=== PATIENT | female | born 1995 | race Caucasian/White ===

== ENCOUNTER 2017-04-22 10:59 | Emergency (ER) | payer OTHER ==
[2017-04-22] MEDS ORDERED: METOPROLOL SUCC50 M2 PO (11:05)
[2017-04-22 12:12] LABS: BASO % 0.4 % (0.0-1.0); EOS # 0.1 10*3/uL (0.0-0.4); EOS % 1.1 % (1.0-4.0); HEMATOCRIT 39.9 % (37.0-47.0); HEMOGLOBIN 13.4 g/dl (12.0-16.0); LYMPH # 2.9 10*3/uL (1.3-4.4); LYMPH % 30.4 % (27.0-41.0); MEAN CELL VOLUME 89.7 fl (81.0-99.0); MEAN CORPUSCULAR HGB 30.1 pg (27.0-31.0); MEAN CORPUSCULAR HGB CONC 33.6 g/dl (33.0-37.0); MEAN PLATELET VOLUME 11.3 fl (9.6-12.3); MONO # 0.5 10*3/uL (0.1-1.0); MONO % 5.5 % (3.0-9.0); NEUT # 5.9 10*3/uL (2.3-7.9); NEUT % 62.2 % (47.0-73.0); PLATELET COUNT AUTOMATED 191 10*3/uL (130-400); RED BLOOD COUNT 4.45 10*6/uL (4.10-5.10); RED CELL DISTRI WIDTH 12.4 % (0-14.5); WHITE BLOOD COUNT 9.4 10*3/uL (4.8-10.8)
[2017-04-22 12:29] LABS: ALBUMIN 3.8 gm/dl (3.1-4.5); ALKALINE PHOSPHATASE 140 U/L (45-117); BUN 12 mg/dl (7-24); CHLORIDE 105 mmol/L (98-107); CREATININE 0.65 mg/dL (0.55-1.02); POTASSIUM 3.6 mmol/L (3.5-5.1); SGOT/AST 18 IU/L (3-35); SGPT/ALT 24 U/L (12-78); SODIUM 139 mmol/L (136-145); TOTAL PROTEIN 7.9 gm/dL (6.4-8.2)
[2017-04-22 12:37] LABS: BETA-HCG, QUANT < 1.0 mIU/mL (1-3); TROPONIN I < 0.015 ng/ml (<0.045)
== END 2017-04-22 16:02 | disposition home or self-care (01) ==
LOC: ED 10:59
PROVIDERS: Emergency Medicine
DX: K62.5 Hemorrhage of anus and rectum (principal); R42 Dizziness and giddiness; R51 Headache; R06.02 Shortness of breath; R55 Syncope and collapse; R10.84 Generalized abdominal pain

== ENCOUNTER → 2019-08-13 | Outpatient (CLI) | payer BC ==
[~2019-08-13] MED LIST: METOPROLOL SUCC50 M2 PO
[2019-08-13 09:25] LABS: HEMATOCRIT 38.3 % (37.0-47.0); HEMOGLOBIN 12.1 g/dl (12.0-16.0); MEAN CELL VOLUME 92.5 fl (81.0-99.0); MEAN CORPUSCULAR HGB 29.2 pg (27.0-31.0); MEAN CORPUSCULAR HGB CONC 31.6 g/dl (33.0-37.0); MEAN PLATELET VOLUME 11.5 fl (9.6-12.3); RED BLOOD COUNT 4.14 10*6/uL (4.10-5.10); RED CELL DISTRI WIDTH 12.3 % (0-14.5); WHITE BLOOD COUNT 6.7 10*3/uL (4.8-10.8)
[2019-08-13 09:52] LABS: ALBUMIN 4.1 gm/dl (3.1-4.5); ALKALINE PHOSPHATASE 149 U/L (45-117); BUN 20 mg/dl (7-24); CHLORIDE 108 mmol/L (98-107); CREATININE 0.69 mg/dL (0.55-1.02); POTASSIUM 4.1 mmol/L (3.5-5.1); SGOT/AST 11 IU/L (3-35); SGPT/ALT 23 U/L (12-78); SODIUM 139 mmol/L (136-145); TOTAL PROTEIN 7.6 gm/dL (6.4-8.2)
== END | disposition home or self-care (01) ==
LOC: LAB 08:44
PROVIDERS: Family Medicine
DX: R06.02 Shortness of breath (principal); J94.2 Hemothorax; R53.83 Other fatigue

== ENCOUNTER 2021-02-02 02:00 | Emergency (ER) | payer BC ==
[~2021-02-02] VITALS: Ht 170.1 cm; Wt 107.5 kg
[2021-02-02] MEDS ORDERED: ORPHENADRINE E100 MG PO (05:57)
[2021-02-02] MEDS ORDERED: MEDROL DOSEPAK4 MG PO (05:57)
== END 2021-02-02 06:20 | disposition home or self-care (01) ==
LOC: ED 02:00
DX: S16.1XXA Strain of muscle, fascia and tendon at neck level, initial encounter (principal); M54.12 Radiculopathy, cervical region; Z79.899 Other long term (current) drug therapy; X50.9XXA Other and unspecified overexertion or strenuous movements or postures, initial encounter; Y93.89 Activity, other specified; Y92.89 Other specified places as the place of occurrence of the external cause; Y99.8 Other external cause status

== ENCOUNTER → 2022-02-02 | Outpatient (CLI) | payer BC ==
[~2022-02-02] MED LIST changes: +MEDROL DOSEPAK4 MG PO; +ORPHENADRINE E100 MG PO
[2022-02-02 08:10] LABS: HEMATOCRIT 42.1 % (37.0-47.0); MEAN CELL VOLUME 89.4 fl (81.0-99.0); MEAN CORPUSCULAR HGB 29.9 pg (27.0-31.0); MEAN CORPUSCULAR HGB CONC 33.5 g/dl (33.0-37.0); MEAN PLATELET VOLUME 11.6 fl (9.6-12.3); RED BLOOD COUNT 4.71 10*6/uL (4.10-5.10)
[2022-02-02 08:36] LABS: ALKALINE PHOSPHATASE 122 U/L (45-117); BUN 19 mg/dl (7-24); CHLORIDE 107 mmol/L (98-107); CHOLESTEROL 150 mg/dL (<200); CREATININE 0.71 mg/dL (0.55-1.02); POTASSIUM 4.2 mmol/L (3.5-5.1); SGOT/AST 14 IU/L (3-35); SGPT/ALT 24 U/L (12-78); SODIUM 137 mmol/L (136-145); TOTAL PROTEIN 7.6 gm/dL (6.4-8.2); TRIGLYCERIDES 100 mg/dl (<150)
[2022-02-02 08:37] LABS: LDL CHOLESTEROL 89 mg/dL (9-159)
[2022-02-02 08:42] LABS: VITAMIN D, 25-HYDROXY 41.4 ng/mL (30-100)
[2022-02-06 00:06] LABS: TESTOSTERONE FREE, (DIRECT) 4.9 pg/mL (0.0-4.2)
[2022-02-06 15:06] LABS: CORN, IGE <0.10 kU/L (Class 0); MILK (COW), IGE <0.10 kU/L (Class 0); PEANUT, IGE <0.10 kU/L (Class 0); SOYBEAN, IGE <0.10 kU/L (Class 0); WHEAT, IGE <0.10 kU/L (Class 0)
[2022-02-07 08:07] LABS: ALTERNARIA ALTERNATA, IGE <0.10 kU/L (Class 0); AMERICAN ELM, IGE <0.10 kU/L (Class 0); ASPERGILLUS FUMIGATU, IGE <0.10 kU/L (Class 0); BERMUDA GRASS, IGE <0.10 kU/L (Class 0); BIRCH, COMMON SILVER IGE <0.10 kU/L (Class 0); CLADOSPORIUM HERBARU, IGE <0.10 kU/L (Class 0); D FARINAE MITE <0.10 kU/L (Class 0); D PTERONYSSINUS 0.13 kU/L (Class 0/I); DOG DANDER, IGE <0.10 kU/L (Class 0); MAPLE LEAF SYCAMORE, IGE <0.10 kU/L (Class 0); MAPLE/BOX ELDER, IGE <0.10 kU/L (Class 0); MOUSE URINE IGE <0.10 kU/L (Class 0); PENICILLIUM CHRYSOGENUM, IGE <0.10 kU/L (Class 0); ROUGH PIGWEED, IGE <0.10 kU/L (Class 0); SHEEP SORREL (DOCK), IGE <0.10 kU/L (Class 0); SHORT RAGWEED, IGE <0.10 kU/L (Class 0); TIMOTHY, IGE <0.10 kU/L (Class 0); WALNUT TREE, IGE <0.10 kU/L (Class 0); WHITE ASH, IGE <0.10 kU/L (Class 0); WHITE MULBERRY, IGE <0.10 kU/L (Class 0); WHITE OAK, IGE <0.10 kU/L (Class 0)
== END | disposition home or self-care (01) ==
LOC: LAB 07:40
PROVIDERS: ATTEND Family Medicine
DX: T78.1XXA Other adverse food reactions, not elsewhere classified, initial encounter (principal); T78.49XA Other allergy, initial encounter; E66.9 Obesity, unspecified; Z00.00 Encounter for general adult medical examination without abnormal findings; E74.9 Disorder of carbohydrate metabolism, unspecified; X58.XXXA Exposure to other specified factors, initial encounter

== ENCOUNTER 2022-12-20 07:20 | Emergency (ER) | payer BC ==
[~2022-12-20] VITALS: Ht 170.1 cm; Wt 104.3 kg
[2022-12-20 08:18] LABS: BASO % 0.3 % (0.0-1.0); EOS % 0.2 % (1.0-4.0); HEMATOCRIT 40.1 % (37.0-47.0); LYMPH # 1.6 10*3/uL (1.3-4.4); MEAN CELL VOLUME 88.5 fl (81.0-99.0); MEAN CORPUSCULAR HGB 30.2 pg (27.0-31.0); MEAN CORPUSCULAR HGB CONC 34.2 g/dl (33.0-37.0); MEAN PLATELET VOLUME 11.6 fl (9.6-12.3); MONO # 0.7 10*3/uL (0.1-1.0); MONO % 6.1 % (3.0-9.0); NEUT # 9.6 10*3/uL (2.3-7.9); NEUT % 79.8 % (47.0-73.0); PLATELET COUNT AUTOMATED 216 10*3/uL (130-400); RED BLOOD COUNT 4.53 10*6/uL (4.10-5.10); RED CELL DISTRI WIDTH 12.5 % (0-14.5)
[2022-12-20 08:59] LABS: ALKALINE PHOSPHATASE 105 U/L (46-116); BETA-HCG, QUANT < 3.0 mIU/mL (3-10); BUN 14 mg/dl (9-23); CHLORIDE 104 mmol/L (98-107); LIPASE 29 U/L (12-53); POTASSIUM 4.1 mmol/L (3.4-5.1); SGPT/ALT 17 U/L (10-49); TOTAL PROTEIN 7.3 gm/dL (6.0-8.0)
[2022-12-20 09:27] LABS: BILIRUBIN Negative (Negative); BLOOD Negative (Negative); CLARITY Cloudy (Clear); COLOR Yellow (Yellow); GLUCOSE Negative (Negative); KETONE Negative (Negative); LEUKO ESTERASE Negative (Negative); NITRITE Negative (Negative); UROBILINOGEN 0.2 E.U./dl (0.0-1.0)
[2022-12-20 09:56] LABS: BACTERIA 3+; EPITHELIAL CELLS 16-20; MUCOUS 1+
[2022-12-20] MEDS ORDERED: ONDANSETRON4 MG SL (13:50)
== END 2022-12-20 13:53 | disposition home or self-care (01) ==
LOC: ED 07:20
PROVIDERS: Emergency Medicine
DX: K80.20 Calculus of gallbladder without cholecystitis without obstruction (principal); Z79.899 Other long term (current) drug therapy

== ENCOUNTER 2022-12-31 19:16 | Emergency (ER) | payer BC ==
[~2022-12-31] VITALS: Ht 170.1 cm; Wt 105.2 kg
[~2022-12-31 19:16] MED LIST changes: +ONDANSETRON4 MG SL
[2022-12-31] MEDS ORDERED: BACTRIM 400-801 EACH PO (19:43)
== END 2022-12-31 19:53 | disposition home or self-care (01) ==
LOC: ED 19:16
DX: Z48.01 Encounter for change or removal of surgical wound dressing (principal)

== ENCOUNTER 2023-01-09 11:57 | Emergency (ER) | payer BC ==
[~2023-01-09] VITALS: Ht 170.1 cm; Wt 105.2 kg
[~2023-01-09 11:57] MED LIST changes: +BACTRIM 400-801 EACH PO
[2023-01-09 13:00] LABS: BASO # 0.1 10*3/uL (0.0-0.1); BASO % 0.4 % (0.0-1.0); EOS # 0.1 10*3/uL (0.0-0.4); EOS % 0.6 % (1.0-4.0); HEMATOCRIT 37.9 % (37.0-47.0); LYMPH # 1.7 10*3/uL (1.3-4.4); LYMPH % 12.3 % (27.0-41.0); MEAN CELL VOLUME 91.8 fl (81.0-99.0); MEAN CORPUSCULAR HGB 30.5 pg (27.0-31.0); MEAN CORPUSCULAR HGB CONC 33.2 g/dl (33.0-37.0); MEAN PLATELET VOLUME 11.4 fl (9.6-12.3); MONO # 1.1 10*3/uL (0.1-1.0); MONO % 8.2 % (3.0-9.0); NEUT # 10.6 10*3/uL (2.3-7.9); NEUT % 78.1 % (47.0-73.0); PLATELET COUNT AUTOMATED 249 10*3/uL (130-400); RED BLOOD COUNT 4.13 10*6/uL (4.10-5.10); RED CELL DISTRI WIDTH 12.3 % (0-14.5); WHITE BLOOD COUNT 13.6 10*3/uL (4.8-10.8)
[2023-01-09 13:32] LABS: ALKALINE PHOSPHATASE 116 U/L (46-116); BUN 12 mg/dl (9-23); CHLORIDE 102 mmol/L (98-107); POTASSIUM 3.8 mmol/L (3.4-5.1); SGPT/ALT 14 U/L (10-49); TOTAL PROTEIN 7.3 gm/dL (6.0-8.0)
[2023-01-09] MEDS ORDERED: PREDNISONE20 M1 PO (15:25)
== END 2023-01-09 15:47 | disposition home or self-care (01) ==
LOC: ED 11:57
PROVIDERS: Emergency Medicine
DX: R07.89 Other chest pain (principal); J98.01 Acute bronchospasm; M54.2 Cervicalgia; I10 Essential (primary) hypertension

== ENCOUNTER 2025-01-19 15:22 | Emergency (ER) | payer BC ==
[~2025-01-19] VITALS: Ht 172.7 cm; Wt 106.6 kg
[~2025-01-19 15:22] MED LIST changes: +PREDNISONE20 M1 PO
[2025-01-19] MEDS ORDERED: SODIUM CHLORIDE 0.9% 1,000 ML IV ONE (16:10)
[2025-01-19 16:23] LABS: MEAN CELL VOLUME 89.9 fl (81.0-99.0); MEAN CORPUSCULAR HGB 30.2 pg (27.0-31.0); MEAN PLATELET VOLUME 11.2 fl (9.6-12.3); NUCLEATED RED BLOOD CELL 0.0 % (0.0-0.0); NUCLEATED RED BLOOD CELL 0.0 10*3/uL (0.0-0.0); PLATELET COUNT AUTOMATED 210 10*3/uL (130-400); RED CELL DISTRI WIDTH 12.3 % (0-14.5)
[2025-01-19 16:31] LABS: MANUAL DIFF REFLEX YES
[2025-01-19 16:38] LABS: BUN 15 mg/dl (9-23)
[2025-01-19 16:41] LABS: ACT PARTIAL THROMBO TIME 26.4 SECONDS (20.0-32.1)
[2025-01-19 17:00] LABS: PLATELET SUFFICIENCY NORMAL (NORMAL)
[2025-01-19] MEDS ORDERED: Ondansetron Hydrochloride 4 MG/2 ML VIAL IV ONE ×2 (17:45→19:10)
[2025-01-19] MEDS ORDERED: Ondansetron4 MG PO (19:13)
== END 2025-01-19 19:24 | disposition home or self-care (01) ==
LOC: ED 15:22
PROVIDERS: Internal Medicine
DX: K52.9 Noninfective gastroenteritis and colitis, unspecified (principal); I11.9 Hypertensive heart disease without heart failure; Z79.899 Other long term (current) drug therapy